=== PATIENT | female | born 1985 | race Caucasian/White ===

== ENCOUNTER → 2023-11-04 10:01 | Outpatient (REF) | payer OTHER, SELFPAY | LOC: WDC 10:01 | PROVIDERS: ATTENDING PHYSICIAN Family Medicine | DX: N63.24 Unspecified lump in the left breast, lower inner quadrant (principal) | CPT/HCPCS: 76642; 77062; 77066 ==

== ENCOUNTER → 2023-11-11 08:34 | Outpatient (REF) | payer OTHER, SELFPAY ==
--- NOTE | 2023-11-11 14:01 | OID.BR.INTR ---
[facility] Breast Navigator - Initial
- -
Date of Contact: 11/11/23
Met with patient. Patient given information on navigator services and support services available at [facility]. Will follow up as needed per protocol.
== END ==
LOC: WDC 08:34
PROVIDERS: ATTENDING PHYSICIAN Family Medicine
DX: N63.32 Unspecified lump in axillary tail of the left breast (principal)
CPT/HCPCS: 88305; 19083; 19084; 77065; 88341; 88342; 88360; A4648

== ENCOUNTER → 2023-11-20 07:00 | Outpatient (REF) | payer OTHER, SELFPAY | LOC: WDC 07:00 | PROVIDERS: ATTENDING PHYSICIAN Surgery | DX: N63.24 Unspecified lump in the left breast, lower inner quadrant (principal) | CPT/HCPCS: A4648 ==

== ENCOUNTER → 2023-11-23 16:21 | Outpatient (REF) | payer OTHER, SELFPAY | LOC: MRI 3T 16:21 | PROVIDERS: ATTENDING PHYSICIAN Surgery; FAMILY PHYSICIAN Family Medicine | DX: C50.412 Malignant neoplasm of upper-outer quadrant of left female breast (principal); Z17.0 Estrogen receptor positive status [ER+]; Z80.3 Family history of malignant neoplasm of breast | CPT/HCPCS: 77049; A9585 ==

== ENCOUNTER → 2023-12-09 14:59 | Outpatient (REF) | payer OTHER, SELFPAY | LOC: RCS 14:59 | PROVIDERS: ATTENDING PHYSICIAN Internal Medicine Hematology & Oncology; FAMILY PHYSICIAN Family Medicine | DX: C50.312 Malignant neoplasm of lower-inner quadrant of left female breast (principal) | CPT/HCPCS: 93306; 93356 ==

== ENCOUNTER → 2023-12-14 15:47 | Outpatient (REF) | payer OTHER, SELFPAY ==
[2023-12-14 12:29] LABS: % Basophils 0.6 % (0-2); % Eosinophils 2.4 % (0-6); % Immature Granulocytes 0.3 % (0-0.5); % Lymphocytes 25.8 % (20.5-51.1); % Monocytes 6.8 % (1.7-9.3); % Neutrophils 64.1 % (42.2-75.2); Absolute Eosinophils 0.2 10^3/uL (0-0.7); Absolute Lymphocytes 1.6 10^3/uL (1.2-3.4); Absolute Monocytes 0.4 10^3/uL (0.1-0.6); Absolute Neutrophils 3.9 10^3/uL (1.4-6.5); Hematocrit 40.5 % (37.0-47.0); Mean Corp Hgb Conc. 34.6 g/dL (33.0-37.0); Mean Corpuscular Hgb 31.2 pg (27.0-31.0); Mean Corpuscular Volume 90.2 fL (81.0-99.0); Nucleated Red Blood Cells % 0 %; Platelet Count 294 10^3/uL (130-400); Red Blood Cell Count 4.49 10^6/uL (4.20-5.40); Red Cell Dist. Width 11.8 % (11.5-14.5); White Blood Cell Count 6.2 10^3/uL (4.8-10.8)
[2023-12-14 12:42] LABS: ALT (SGPT) 19 U/L (0-35); AST (SGOT) 25 U/L (14-36); Albumin 4.3 g/dl (3.5-5.0); Alkaline Phosphatase 114 U/L (38-126); Blood Urea Nitrogen 8 mg/dl (7-17); Calcium 9.3 mg/dl (8.4-10.2); Carbon Dioxide 26 mmol/L (22-30); Chloride 103 mmol/L (98-107); Glucose 103 mg/dl (70-99); Sodium 135 mmol/L (135-145); Total Bilirubin 0.6 mg/dl (0.2-1.3); Total Protein 7.7 g/dl (6.3-8.2); eGFR > 60.00
== END ==
LOC: OIDL 15:47
PROVIDERS: ATTENDING PHYSICIAN Internal Medicine Hematology & Oncology
DX: C50.312 Malignant neoplasm of lower-inner quadrant of left female breast (principal)
CPT/HCPCS: 80053; 85025

== ENCOUNTER 2023-12-15 06:11 | Day surgery (SDC) | payer OTHER, SELFPAY ==
[2023-12-08 08:45] LABS: Hematocrit 36.2 % (37.0-47.0); Hemoglobin 12.7 g/dL (12.0-16.0); Mean Corp Hgb Conc. 35.1 g/dL (33.0-37.0); Mean Corpuscular Hgb 31.4 pg (27.0-31.0); Mean Corpuscular Volume 89.6 fL (81.0-99.0); Mean Platelet Volume 8.9 fL (7.4-10.4); Platelet Count 271 10^3/uL (130-400); Red Blood Cell Count 4.04 10^6/uL (4.20-5.40)
[2023-12-08 09:15] LABS: ALT (SGPT) 16 U/L (0-35); AST (SGOT) 20 U/L (14-36); Alkaline Phosphatase 80 U/L (38-126); Blood Urea Nitrogen 14 mg/dl (7-17); Calcium 8.8 mg/dl (8.4-10.2); Carbon Dioxide 27 mmol/L (22-30); Chloride 103 mmol/L (98-107); Glucose 92 mg/dl (70-99); Potassium 4.2 mmol/L (3.5-5.1); Sodium 137 mmol/L (135-145); Total Protein 7.3 g/dl (6.3-8.2); eGFR > 60.00
[2023-12-08 09:23] LABS: Prealbumin (Transthyretin) 22.7 mg/dl (17.6-36.0)
[2023-12-08 09:34] LABS: Vitamin D, 25-OH*** 22.5 ng/mL (30-80)
[2023-12-08 12:29] VITALS: BMI 29.0
[2023-12-15] VITALS (8 sets, daily range): BP systolic 99–118; BP diastolic 65–85; BMI 26.8
[2023-12-15] MEDS: NSS 1000 IV (06:42)
--- NOTE | 2023-12-15 07:38 | PTCARENOTE ---
IVF hung wide open after IV inserted. When patient was taken to the OR her IVF 1000 ml NSS not completely infused yet. Told the OR team CRICKET COACH that Normosol still needs to be hung after NSS.
== END 2023-12-15 10:09 | disposition home or self-care (01) ==
LOC: SDS 06:11
PROVIDERS: ATTENDING PHYSICIAN Surgery; FAMILY PHYSICIAN Family Medicine
DX: C50.912 Malignant neoplasm of unspecified site of left female breast (principal); Z17.0 Estrogen receptor positive status [ER+]
CPT/HCPCS: 36561; 36415; 71045; 76000; 80053; 82306; 84134; 85027; C1788

== ENCOUNTER → 2024-01-27 15:21 | Outpatient (REF) | payer OTHER, SELFPAY ==
[2024-01-27 10:26] LABS: ALT (SGPT) 22 U/L (0-35); AST (SGOT) 24 U/L (14-36); Albumin 3.9 g/dl (3.5-5.0); Alkaline Phosphatase 98 U/L (38-126); Blood Urea Nitrogen 12 mg/dl (7-17); Calcium 8.8 mg/dl (8.4-10.2); Carbon Dioxide 28 mmol/L (22-30); Chloride 101 mmol/L (98-107); Glucose 107 mg/dl (70-99); Potassium 3.8 mmol/L (3.5-5.1); Sodium 135 mmol/L (135-145); Total Bilirubin 0.5 mg/dl (0.2-1.3); Total Protein 7.1 g/dl (6.3-8.2); eGFR > 60.00
== END ==
LOC: OIDL 15:21
PROVIDERS: ATTENDING PHYSICIAN Internal Medicine Hematology & Oncology
DX: C50.312 Malignant neoplasm of lower-inner quadrant of left female breast (principal)
CPT/HCPCS: 80053

== ENCOUNTER → 2024-02-26 14:13 | Outpatient (REF) | payer OTHER, SELFPAY | LOC: RCS 14:13 | PROVIDERS: ATTENDING PHYSICIAN Internal Medicine Cardiovascular Disease; FAMILY PHYSICIAN Family Medicine | DX: Z85.3 Personal history of malignant neoplasm of breast (principal); E78.1 Pure hyperglyceridemia; R94.31 Abnormal electrocardiogram [ECG] [EKG] | CPT/HCPCS: 93308; 93321; 93325 ==

== ENCOUNTER → 2024-04-12 11:43 | Outpatient (REF) | payer OTHER, SELFPAY ==
[2024-04-12 11:49] LABS: % Basophils 0.3 % (0-2); % Immature Granulocytes 8.7 % (0-0.5); Absolute Immature Granulocytes 0.3 10^3/uL (0-0.05); Absolute Lymphocytes 0.8 10^3/uL (1.2-3.4); Absolute Monocytes 0.1 10^3/uL (0.1-0.6); Absolute Neutrophils 2.3 10^3/uL (1.4-6.5); Hematocrit 29.2 % (37.0-47.0); Hemoglobin 10.4 g/dL (12.0-16.0); Mean Corp Hgb Conc. 35.6 g/dL (33.0-37.0); Mean Corpuscular Hgb 38.5 pg (27.0-31.0); Mean Corpuscular Volume 108.1 fL (81.0-99.0); Mean Platelet Volume 8.8 fL (7.4-10.4); Platelet Count 157 10^3/uL (130-400); Red Cell Dist. Width 14.4 % (11.5-14.5); White Blood Cell Count 3.5 10^3/uL (4.8-10.8)
[2024-04-12 13:07] LABS: ALT (SGPT) 22 U/L (0-35); AST (SGOT) 29 U/L (14-36); Albumin 4.3 g/dl (3.5-5.0); Alkaline Phosphatase 77 U/L (38-126); Blood Urea Nitrogen 20 mg/dl (7-17); Calcium 8.9 mg/dl (8.4-10.2); Carbon Dioxide 27 mmol/L (22-30); Chloride 95 mmol/L (98-107); Glucose 106 mg/dl (70-99); Potassium 3.6 mmol/L (3.5-5.1); Sodium 133 mmol/L (135-145); Total Bilirubin 1.4 mg/dl (0.2-1.3); Total Protein 7.1 g/dl (6.3-8.2); eGFR > 60.00
== END ==
LOC: OIDL 11:43
PROVIDERS: ATTENDING PHYSICIAN Internal Medicine Hematology & Oncology
DX: C50.312 Malignant neoplasm of lower-inner quadrant of left female breast (principal)
CPT/HCPCS: 80053; 85025

== ENCOUNTER → 2024-05-24 07:23 | Outpatient (REF) | payer OTHER, SELFPAY | LOC: RCS 07:23 | PROVIDERS: ATTENDING PHYSICIAN Physician Assistant; FAMILY PHYSICIAN Family Medicine; OTHER PHYSICIAN Internal Medicine Cardiovascular Disease; REFERRING PHYSICIAN Internal Medicine Hematology & Oncology | DX: R94.31 Abnormal electrocardiogram [ECG] [EKG] (principal); R06.02 Shortness of breath | CPT/HCPCS: 93306; 93356 ==

== ENCOUNTER → 2024-05-30 08:50 | Outpatient (REF) | payer OTHER, SELFPAY | LOC: WDC 08:50 | PROVIDERS: ATTENDING PHYSICIAN Surgery | DX: C50.412 Malignant neoplasm of upper-outer quadrant of left female breast (principal) | CPT/HCPCS: 38792; 76942; A9541 ==

== ENCOUNTER 2024-05-31 06:42 | Inpatient (IN) | payer OTHER, SELFPAY ==
[2024-05-19 09:12] VITALS: BMI 27.3
[2024-05-19 11:19] LABS: ALT (SGPT) 16 U/L (0-35); AST (SGOT) 25 U/L (14-36); Albumin 4.1 g/dl (3.5-5.0); Alkaline Phosphatase 70 U/L (38-126); Blood Urea Nitrogen 14 mg/dl (7-17); Calcium 9.5 mg/dl (8.4-10.2); Carbon Dioxide 26 mmol/L (22-30); Chloride 104 mmol/L (98-107); Estimated Creatinine Clearance 99 ml/min; Glucose 91 mg/dl (70-99); Potassium 3.6 mmol/L (3.5-5.1); Sodium 136 mmol/L (135-145); Total Bilirubin 0.7 mg/dl (0.2-1.3); Total Protein 6.9 g/dl (6.3-8.2); eGFR > 60.00
[2024-05-19 11:27] LABS: Prealbumin (Transthyretin) 22.2 mg/dl (17.6-36.0)
[2024-05-19 11:39] LABS: Vitamin D, 25-OH*** 39.7 ng/mL (30-80)
[2024-05-19 11:47] LABS: Hematocrit 31.7 % (37.0-47.0); Hemoglobin 10.8 g/dL (12.0-16.0); Mean Corp Hgb Conc. 34.1 g/dL (33.0-37.0); Mean Corpuscular Hgb 37.5 pg (27.0-31.0); Mean Corpuscular Volume 110.1 fL (81.0-99.0); Mean Platelet Volume 8.5 fL (7.4-10.4); Platelet Count 216 10^3/uL (130-400); Red Blood Cell Count 2.88 10^6/uL (4.20-5.40); Red Cell Dist. Width 12.6 % (11.5-14.5); White Blood Cell Count 4.5 10^3/uL (4.8-10.8)
--- NOTE | 2024-05-24 13:11 | PTCARENOTE ---
Patients 05/19 ECG Abnomral- reviewed by Dr. German- no additional interventions required
[2024-05-31] VITALS (12 sets, daily range): BP systolic 5–132; BP diastolic 60–92; BMI 27.3; BMI 26.5
[2024-05-31] MEDS: TYLENOL 1000 MG PO ×2 (07:29→17:10)
[2024-05-31] MEDS: NORMOSOL-R/PLASMALYTE-A 1000 IV (07:30)
--- NOTE | 2024-05-31 08:29 | W.SUR.PREOP ---
Pre-Operative Surgical Note
-
I have examined this patient prior to the performance of the scheduled procedure.
The patient's condition is unchanged from the time of the current History and
Physical and the patient is able to undergo the scheduled procedure.
--- NOTE | 2024-05-31 12:26 | W.IMMPOSTOP ---
Surgical Immed Post Op Note
-
Primary Surgeon: Kodi
Assisting Surgeon: None
Pre-op Diagnosis: Left breast ca S/P neoadjuvant chemotherapy
Post-op Diagnosis: Same
Procedure Performed: Bilateral skin-sparing mastectomies, left sentinel lymph node mapping and biopsy
Anesthesia Type: GET
Specimen / Cultures: Bilateral breasts, left sentinel nodes
Estimated Blood Loss: 20cc
Complications: None
Operative Findings: None
[place] Node Bx Breast Cancer
[place] Node Bx Breast Cancer
Operation performed with curative intent: Yes
Tracer(s) to ID Sentinal Nodes in the Neoadjuvant Setting: Dye and Radioactive Tracer
All nodes at end of dye-filled Lymphatic Channel removed: Yes
All Significantly Radioactive Nodes were removed: Yes
All Palpably Suspicious Nodes were Removed: Yes
Bx Proven Pos Nodes Marked Prior to Chemo ID'd & Removed: Yes
[2024-05-31] MEDS: DILAUDID 0.25 MG IV (13:26)
--- NOTE | 2024-05-31 15:05 | PTCARENOTE ---
Pt arrived to 2S in bed. Full assessment completed. B/L breast incisions C/D/I, dressings and surgical bra maintained. Soft around the sites, no hematoma noted, + cap refill. MASHA drain sites C/D/I. Bed locked and in the lowest position, safety
maintained. Oriented to room and call scott.
[2024-05-31] MEDS: NEURONTIN 100 MG PO ×2 (17:09→21:23)
[2024-05-31] MEDS: COLACE 100 MG PO (19:42)
[2024-05-31] MEDS: ANCEF 5 IV (19:42)
--- NOTE | 2024-05-31 20:09 | W.IMMPOSTOP ---
Surgical Immed Post Op Note
-
Primary Surgeon: CYDNEY Whatley MD
Assisting Surgeon:
Pre-op Diagnosis: breast cancer
Post-op Diagnosis: same
Procedure Performed: bilateral immediate breast reconstruction with tissue expanders
Anesthesia Type: General
Specimen / Cultures: Per Dr. Mariee
Estimated Blood Loss: 30 cc
Complications: none
Operative Findings: as expected
--- NOTE | 2024-05-31 20:09 | OR.RPT ---
Operative Report
Operative Report
Date of surgery: 05/31/2024
Surgeon: CYDNEY Whatley MD
Preoperative diagnosis: Breast cancer
Postoperative diagnosis: Same
Procedure:
1. Bilateral immediate breast reconstruction with prepectoral tissue expanders
2. Total anterior coverage technique for ADM wrap
Complications: None
Anesthesia: General
EBL:30 cc
Facility Service Associate size: 12 cm
Indications for procedure: Patient was referred to me by Dr. Mariee with a recent diagnosis of breast cancer. She was planned to undergo bilateral mastectomy. We discussed her options for breast reconstruction at length including implant based
and autologous options. The patient opted for immediate reconstruction with tissue expanders. She understands that the final reconstruction will be staged. We also discussed the use of ADM and spy angiography. Risks include reconstructive
failure, capsular contracture, infection, delayed wound healing, mastectomy skin flap necrosis, hematoma, seroma and need for repeat procedure. Patient understood these risks and desired to proceed. Consents were signed accordingly.
Procedure in detail: Patient was identified the preoperative area and the surgical site was confirmed to be the bilateral breast. All questions were answered and consents were confirmed. Patient was then sat upright and normal anatomical landmarks
were marked including midline and inframammary fold. Patient was then taken back to the operating room placed supine on the table. She was prepped and draped in the usual sterile fashion using ChloraPrep solution. A Tim catheter was placed. A
timeout for patient safety was performed was confirmed that bilateral SCDs were in place and preoperative antibiotics administered. The procedure began with Dr. Mariee first performing the mastectomy. Her op report will be dictated separately.
When I entered the procedure, the first sided mastectomy had been completed. As such I inspected the wound bed of the chest wall and ensured meticulous hemostasis. The base width was measured and appropriate tissue able bodied tankerman was selected. Two 6 x
16 sheets of Cortiva ADM were soaked in dilute Betadine solution and passed through the skin graft mesher on carrier of 1-1.5. This construct was then draped around the tissue able bodied tankerman in a total anterior coverage technique. The able bodied tankerman ADM
construct was then sutured to the chest wall with a series of 2-0 silk sutures. Pectoralis and intercostal blocks were performed with Marcaine. 2 drains were then placed in the preaxial area line with a long subcutaneous tunnel and sutured in
place with 2-0 Prolene sutures. The wound was irrigated with double antibiotic solution and dilute Betadine. The mastectomy incisions were then closed with a series of 3-0 Vicryl's in the deep subcutaneous tissues followed by 3-0 and 4-0
Monocryl's in the deep dermis and superficial skin.
Attention was then placed on the contralateral side after completion of the mastectomy. The exact same procedure was performed. An able bodied tankerman of the same size was opened and 2 sheets of ADM were soaked in Betadine, meshed, and draped around the
anterior surface of the able bodied tankerman in a total anterior coverage technique. The construct was then sutured to the chest wall using 2-0 silks. Pectoralis and intercostal blocks were performed. Meticulous hemostasis was ensured and the wound was
irrigated with combination of double antibiotic solution consisting of Ancef and gentamicin as well as dilute Betadine. The wound was closed in layers with 3-0 Vicryl followed by 3-0 Monocryl and 4-0 Monocryl superficial skin.
On table fill volume of 200 cc of saline.
The wounds were dressed accordingly and a supportive bra was placed. The patient was extubated taken to the PACU for further care. All counts were correct at the end the case was performed out complication.
[2024-05-31] MEDS: ULTRAM 50 MG PO (21:23)
[2024-06-01] MEDS: TYLENOL 1000 MG PO ×3 (00:29→11:19)
[2024-06-01] MEDS: ANCEF 5 IV ×2 (02:57→11:18)
[2024-06-01] MEDS: VALIUM 5 MG PO (03:02)
[2024-06-01 03:05] VITALS: BP 115/69
[2024-06-01 06:20] LABS: Hematocrit 27.9 % (37.0-47.0); Hemoglobin 9.6 g/dL (12.0-16.0)
[2024-06-01 07:33] LABS: Blood Urea Nitrogen 8 mg/dl (7-17); Calcium 8.7 mg/dl (8.4-10.2); Carbon Dioxide 26 mmol/L (22-30); Chloride 105 mmol/L (98-107); Estimated Creatinine Clearance 114 ml/min; Glucose 100 mg/dl (70-99); Potassium 3.5 mmol/L (3.5-5.1); Sodium 139 mmol/L (135-145); eGFR > 60.00
[2024-06-01 07:46] VITALS: BP 105/60
[2024-06-01] MEDS: COLACE 100 MG PO (09:05)
[2024-06-01] MEDS: NEURONTIN 100 MG PO (09:05)
--- NOTE | 2024-06-01 10:15 | W.PN.PLAS ---
Today's Communication
-
follow-up on Thursday in office
Progress Note
Subjective Data
Doing well this morning
Denies shortness of breath
Pain well-controlled
Subjective: Tolerating Regular Diet and Ambulatory
Objective Data
Vital Signs
Temp Pulse Resp BP Pulse Ox
97.8 F 85 16 105/60 100
06/01/24 07:46 06/01/24 07:46 06/01/24 07:46 06/01/24 07:46 06/01/24 07:46
Intake and Output
05/31/24 06/01/24 06/02/24
06:59 06:59 06:59
Intake Total 559 / 559
Output Total 882 / 882
Balance -323 / -323
Intake:
Oral fluids 409 / 409
IV fluids (Total) 150 / 150
norm 150 / 150
Output:
Drain Output (Total) 332 / 332
Left Chest Lucas-Silva C 52 / 52
Left Chest Lucas-Silva D 100 / 100
Right Chest A 50 / 50
Right Chest B 130 / 130
Urine, Voided 550 / 550
Other:
Number of approximated MODERATE 2
amounts of urine
Physical exam:
No acute distress
No increased work of breathing
Bilateral breast with expanders in place
No undrained fluid collections
Dressings in place clean dry and intact
Drains serosanguineous with appropriate output
Lab Results
06/01/24 06:00
06/01/24 06:00
Assessment / Plan
status post bilateral mastectomy and immediate reconstruction with tissue expanders
Ambulatory
Regular diet
Pain well-controlled on oral meds
Tim voided
Home today with visiting nurse
--- NOTE | 2024-06-01 10:17 | W.DCSUMMARY ---
Discharge Summary
Discharge Data
Date of Admission: 05/31/24
Date of Discharge: 06/01/24
-
Pending Results: No
Hospital Course
patient was admitted following bilateral mastectomy and immediate reconstruction with tissue expanders
She for routine postoperative course. On day of discharge her pain was well-controlled, she is tolerating regular diet, ambulatory, able to void.
Visiting nurse was arranged for drain management and wound check at home
Close follow-up was scheduled
Discharge Plan
-
Patient Disposition: Home (Routine Discharge)
Condition: Good
Referrals:
Bruce Robert DO [Family Provider] -
Prescriptions:
New
cefadroxil 500 mg capsule
500 mg PO BID Qty: 42 0RF
tramadol 50 mg Tablet
50 mg PO Q6HPRN PRN (Reason: pain) 7 Days Qty: 12 0RF
acetaminophen [Tylenol Extra Strength] 500 mg Tablet
1,000 mg PO Q6 30 Days Qty: 240 0RF
docusate sodium 100 mg Capsule
100 mg PO BID 14 Days Qty: 28 0RF
gabapentin 100 mg Capsule
100 mg PO TID 30 Days Qty: 90 2RF
diazepam 5 mg Tablet
5 mg PO TIDPRN PRN (Reason: Muscle Spasms) 14 Days Qty: 42 0RF
Continued
multivitamin Tablet
1 tab PO DAILY
cholecalciferol (vitamin D3) [Vitamin D3] 25 mcg (1,000 unit) Tablet
25 mcg PO DAILY
mecobalamin (vitamin B12) [B12 Active] 1,000 mcg Tablet,Chewable
1,000 mcg PO DAILY
Discharge Orders:
Discharge Patient (As Directed); Ordered 06/01/24
Ordered By: Fred Whatley
Discharge Date and Time
Print Language: FILIPINO
--- NOTE | 2024-06-01 11:02 | CM ---
Met with patient and her mother at the bedside; initial assessment and case management consult completed
Pharmacy verified: [facility] @ [address] [facility] [facility], [place], [place]
Patient lives in a multilevel home with mother, sister, and 2 year old son; 4 steps to enter; 13 steps between floors; bathroom in basement and on 2nd floor; her bathroom has walk-in shower stall
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
NO DME
NO history of SNF
Mother will transport home
Agreeable to Home Health services; VNA is preference; referral sent to [facility] liaison for VN via [place] [employer]
Plan: discharge to home when stable with home health VN services from [facility]
[2024-06-01 11:17] VITALS: BP 111/80
[2024-06-01] MEDS: ULTRAM 50 MG PO (11:19)
--- NOTE | 2024-06-01 13:11 | VNURNOTE ---
Home health liaison met with patient to discuss [facility] services, visit scheduling/frequency, homebound status and pet policy. Patient understands home visits will be 1-2 times a week to assess and teach medical management, drain teaching. Patient
aware a visiting nurse will contact her for start of care within 1-2 days after discharge from . [facility] Referral completed in care port
--- NOTE | 2024-06-01 13:37 | W.PN.UPDATE ---
Update Note
Progress Note Update
the patient is POD #1 S/P bilateral mastectomies and sentinel node mapping and biopsy with immediate reconstruction with bilateral tissue expanders performed by Dr. Whatley. The patient is doing well and her pain is well-controlled. Post op nutrition
and activity discussed. VNA in place. She will see Dr. Whatley in 2 days and myself in 2 weeks. Pathology report pending.
== END 2024-06-01 14:05 | disposition home health service (06) | DRG 581 ==
LOC: 2 SOUTH 06:42
PROVIDERS: ADMITTING PHYSICIAN Surgery Plastic and Reconstructive Surgery; ATTENDING PHYSICIAN Surgery; FAMILY PHYSICIAN Family Medicine
PROC: 0HUV07Z Supplement Bilateral Breast with Autologous Tissue Substitute, Open Approach (ICD-10-PCS; 2024-05-31)
PROC: 07B60ZX Excision of Left Axillary Lymphatic, Open Approach, Diagnostic (ICD-10-PCS; 2024-05-31)
PROC: 0HTV0ZZ Resection of Bilateral Breast, Open Approach (ICD-10-PCS; 2024-05-31)
PROC: 0HHV0NZ Insertion of Tissue Expander into Bilateral Breast, Open Approach (ICD-10-PCS; 2024-05-31)
DX: C50.412 Malignant neoplasm of upper-outer quadrant of left female breast (principal)
CPT/HCPCS: 88307; 88332; 36415; 80048; 80053; 82306; 84134; 85014; 85018; 85027; 88331; 88333; 88342; 93005; A4648; C1729; C1789; Q4100

== ENCOUNTER 2024-07-07 15:13 | Day surgery (SDC) | payer OTHER, SELFPAY ==
[2024-07-07] VITALS (11 sets, daily range): BP systolic 30–130; BP diastolic 72–92
--- NOTE | 2024-07-07 09:18 | ED.GENMED ---
History of Present Illness
General
Chief Complaint: Wound Check/Suture Removal
Source: patient
Exam Limitations: none
Time Seen by Provider: 07/07/24 09:01
Nursing documentation reviewed up to this point in time: agreed with
History of Present Illness
History of Present Illness:
pt is a 39 y/o F with h/o breast CA
completed chemo
had double mastectomy may 2024
had expanders placed last week
had had some fluid accumuliation in both, more in the L than R
has been seen by dr. mendiola from plastics who is doing the reconstruction
he drained some fluid off 3 days ago
she has had trouble with the L side incision site not closing well. she completed abx
but in the past few days has had some yellowish tissue develop in the center of the incision
this mornign a scab came off and then then she started oozing serosanguanous fluid and 'can't get it to stop'
she has no pain
no fever/hcills
R breast is hleaing well
Past History
Past History
ED Past Medical History: Cancer (breast)
ED Past Surgical History: Gynecological (b/l mastectoy )
Review of Systems
Review of Systems
Allergies reviewed?: Yes
All Other Systems: Not applicable
Phy Exam
Physical Exam
Physical Exam:
GENERAL: Alert , in no apparent distress
CARDIAC: Regular rate and rhythm .
LUNGS: Clear breath sounds bilaterally, no acute respiratory distress, no wheezes/rales/rhonchi
breast: L central vertical incision superiorly with eschar tissue in the center, not fully closed with oozing from the inferior aspect of the top incision
the loewr
ABDOMEN: Soft, without focal tenderness, no r/g, no cvat, normal bowel sounds
NEUROLOGICAL: Alert and oriented, no focal neuro deficits
SKIN: Warm and dry, skin intact.
MUSCULOSKELETAL: No edema, well perfused. neg vero's sign
PSYCH: Normal and appropriate interaction.
Course
Orders/Labs/Results
Orders:
Orders
07/07/24 09:37
Complete Blood Count/With Diff Urgent
Comprehensive Metabolic Panel Urgent
PTT Urgent
Prothrombin Time Urgent
Vital Signs
Initial and Last Documented VS:
Initial Vital Signs
Temp Pulse Resp BP Pulse Ox
98.5 F 96 16 130/92 98
07/07/24 08:47 07/07/24 08:47 07/07/24 08:47 07/07/24 08:47 07/07/24 08:47
Last Documented Vital Signs
Temp Pulse Resp BP Pulse Ox
98.5 F 96 16 130/92 98
07/07/24 08:47 07/07/24 08:47 07/07/24 08:47 07/07/24 08:47 07/07/24 08:47
MDM/Problems Addressed
Differential Diagnosis Includes:
wound dehiscence, wound infection
MDM/Problems Addressed:
39 y/o F s/p breast reconstruction surgery (expanders) after double mastectomy here with wound dehiscence and oozing from the L breast incision
concner for seroma/reaccumulation of fluid and possible infeciton/poor healgin
i spoke with pt's plastic surgeon dr. mendiola who came to the Er to evaluate her and discussed options
pt will plan for OR incision wash out and replacement of flame hardening machine operator and maybe another drain today
NPO
admit to OR
*Critical Care Note
Total Time (30-74mins, 75-104mins- exclusive of procedures): Not Applicable
ED Attending Note
-
Portions of this chart may have been created with voice recognition software.� Occasional wrong word or��sound alike� substitutions may have occurred due to the inherent limitations of voice recognition software.
Discharge Plan
Departure
Patient Disposition: Admit
Date of Disposition: 07/07/24
Time of Disposition: 09:32
Admit to: OR
Admit to doctor: marlena
Presentation/result/management discussed w/ accepting /: marlena
Patient with high blood pressure during this ER visit?: No
Condition: Fair
Covid-19: Not Applicable
Discharge Problem:
Dehiscence of wound
Prescriptions:
No Action
multivitamin Tablet
1 tab PO DAILY
cholecalciferol (vitamin D3) [Vitamin D3] 25 mcg (1,000 unit) Tablet
25 mcg PO DAILY
mecobalamin (vitamin B12) [B12 Active] 1,000 mcg Tablet,Chewable
1,000 mcg PO DAILY
cefadroxil 500 mg capsule
500 mg PO BID Qty: 42 0RF
tramadol 50 mg Tablet
50 mg PO Q6HPRN PRN (Reason: pain) 7 Days Qty: 12 0RF
acetaminophen [Tylenol Extra Strength] 500 mg Tablet
1,000 mg PO Q6 30 Days Qty: 240 0RF
docusate sodium 100 mg Capsule
100 mg PO BID 14 Days Qty: 28 0RF
gabapentin 100 mg Capsule
100 mg PO TID 30 Days Qty: 90 2RF
diazepam 5 mg Tablet
5 mg PO TIDPRN PRN (Reason: Muscle Spasms) 14 Days Qty: 42 0RF
Referrals:
Bruce Robert DO [Family Provider] -
Interventions
Interventions:
*Risk Screen - Suicide Last Done: 07/07/24 08:47
*General Assessment Last Done: 07/07/24 09:25
*Neglect/Abuse Screening Last Done: 07/07/24 08:47
*ED COVID-19 Vaccine History Last Done: 07/07/24 09:25
ED-Skin Assessment Last Done: 07/07/24 09:25
Discharge Date and Time
Print Language: WELSH
[2024-07-07 10:26] LABS: % Eosinophils 10.7 % (0-6); % Immature Granulocytes 0.2 % (0-0.5); % Lymphocytes 38.2 % (20.5-51.1); % Monocytes 7.4 % (1.7-9.3); % Neutrophils 42.5 % (42.2-75.2); Absolute Basophils 0.1 10^3/uL (0-0.2); Absolute Eosinophils 0.5 10^3/uL (0-0.7); Absolute Lymphocytes 1.9 10^3/uL (1.2-3.4); Absolute Monocytes 0.4 10^3/uL (0.1-0.6); Absolute Neutrophils 2.1 10^3/uL (1.4-6.5); Hemoglobin 10.5 g/dL (12.0-16.0); Mean Corpuscular Hgb 32.7 pg (27.0-31.0); Mean Corpuscular Volume 93.5 fL (81.0-99.0); Mean Platelet Volume 8.1 fL (7.4-10.4); Nucleated Red Blood Cells % 0 %; Platelet Count 220 10^3/uL (130-400); Red Blood Cell Count 3.21 10^6/uL (4.20-5.40); Red Cell Dist. Width 11.5 % (11.5-14.5)
[2024-07-07 10:38] LABS: INR 1.04; PT 13.6 Sec (11.4-14.6)
[2024-07-07 10:39] LABS: APTT 37.1 Sec (23.4-35.0)
[2024-07-07 10:47] LABS: ALT (SGPT) 18 U/L (0-35); AST (SGOT) 23 U/L (14-36); Alkaline Phosphatase 80 U/L (38-126); Blood Urea Nitrogen 13 mg/dl (7-17); Calcium 9.3 mg/dl (8.4-10.2); Carbon Dioxide 28 mmol/L (22-30); Chloride 104 mmol/L (98-107); Glucose 101 mg/dl (70-99); Potassium 3.8 mmol/L (3.5-5.1); Sodium 140 mmol/L (135-145); Total Bilirubin 0.5 mg/dl (0.2-1.3); eGFR > 60.00
--- NOTE | 2024-07-07 16:52 | W.IMMPOSTOP ---
Surgical Immed Post Op Note
-
Primary Surgeon: CYDNEY Whatley MD
Assisting Surgeon:
Pre-op Diagnosis: left breast seroma
Post-op Diagnosis: same
Procedure Performed: debridement 7 x 3 cm, removal of tissue student assistance counselor, capsulectomy, reinsertion of tissue student assistance counselor
Anesthesia Type: General
Specimen / Cultures: Capsule for culture, fluid for culture
Estimated Blood Loss: 30 cc
Complications: none
Operative Findings: unincorporated ADM
--- NOTE | 2024-07-07 16:54 | OR.RPT ---
Operative Report
Operative Report
date of surgery: 07/07/2024
Surgeon: CYDNEY Whatley MD
Preoperative diagnosis:
1. 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
2. History of breast cancer, left
3. Left breast seroma
Postoperative diagnosis: Same
Procedure:
1. Excisional debridement skin and subcutaneous tissues, 7 x 3 cm
2. Removal of left breast tissue holter scanning technician
3. Capsulectomy, left breast
4. Insertion of left breast tissue holter scanning technician
5. Superficial excisional debridement 1 x 2 cm, 2 x 3 cm, with delayed primary closure 5 cm in total, right breast
anesthesia: General
Complications: None
Specimens: Fluid and capsule for culture
EBL: 30 cc
Indications for procedure: Patient is a 39-year-old female with a recent diagnosis of left breast cancer. She underwent neoadjuvant chemotherapy followed by bilateral skin sparing mastectomy and immediate reconstruction with tissue expanders. She
followed a routine postoperative course for 3 weeks. Drains came out without issue. She tolerated expansion in the office. Unfortunately, she presented over 1 month out with delayed seromas of the bilateral breast. These were drained in the
office without complication. She developed recurrent fluid production through a left breast eschar. She presented to the ED for evaluation. The decision was made to go to the OR for removal of the tissue holter scanning technician, removal of any unincorporated
ADM, replacement of the drain and holter scanning technician. This would be done to prevent infectious sequela. Risks were reviewed at length and she understood. Right breast debridement superficial sutures support for wound healing would be performed as
indicated. Consents were confirmed
procedure in detail: Patient was identified preoperatively and the surgical site Was confirmed to be the left and right breast. patient was brought back to the operating room placed supine on table. Anesthesia was induced and an LMA was placed.
Patient was then prepped and draped using ChloraPrep solution in the usual sterile fashion. Timeout for patient safety was performed And was confirmed that she received preoperative antibiotics and SCDs were in place. Procedure began with the
injection 1% lidocaine with epinephrine in the left breast incisional markings. A 15 blade was then used to casi a vertical ellipse around the prior surgical incision with delayed wound healing. This was an area of 7 x 3 cm. The implant capsule
was then entered and the holter scanning technician was removed. Serosanguineous fluid was present without any purulence. Cultures were taken and sent. Notable amount of unincorporated ADM was present and as such a near total capsulectomy was performed.
Meticulous hemostasis was ensured and the wound bed was then irrigated with 3 L of normal saline using the Pulse EVAC. vancomycin powder was then distributed over the exposed areas and a 12 cm holter scanning technician was sutured onto the chest wall using 2 oh
silks. A 15 [place] Champ drain was placed and tunneled subcutaneously in the periaxillary line. This was sutured in place with 2-0 Prolene. The vertical wound was then closed with 3-0 Monocryl followed by 4-0 Monocryl. Prior to completion of
closure Betadine was used to instill into the wound bed while the drain was clamped. Attention was then drawn to the right side where superficial eschar was removal was performed at the level of the dermis, with punctate bleeding. This was
performed at the superior and inferior aspects of the incision only. A series of 2-0 Prolene's were placed to support the wound healing process and prevent further breakdown. The wounds were dressed accordingly bacitracin dry gauze and Tegaderm.
Patient tolerated the procedure well, was performed out complication. All counts were correct at the end the case.
--- NOTE | 2024-07-07 18:10 | VATNOTE ---
right port deaccessed per protocol; brisk blood return noted prior to.
== END 2024-07-07 18:28 | disposition home or self-care (01) ==
LOC: PACU 15:13
PROVIDERS: Physician Assistant; ATTENDING PHYSICIAN Surgery Plastic and Reconstructive Surgery; EMERGENCY PHYSICIAN Emergency Medicine; FAMILY PHYSICIAN Family Medicine
DX: M96.843 Postprocedural seroma of a musculoskeletal structure following other procedure (principal); Z97.8 Presence of other specified devices; Z85.3 Personal history of malignant neoplasm of breast; Z90.13 Acquired absence of bilateral breasts and nipples
CPT/HCPCS: 11970; 80053; 85025; 85610; 85730; 87070; 87075; 87147; 87176; 87186; 87205; 99285; C1729; C1789; L8000

== ENCOUNTER → 2024-08-26 09:20 | Outpatient (REF) | payer OTHER, SELFPAY | LOC: RCS 09:20 | PROVIDERS: ATTENDING PHYSICIAN Internal Medicine Cardiovascular Disease; FAMILY PHYSICIAN Family Medicine | DX: Z85.3 Personal history of malignant neoplasm of breast (principal); R00.0 Tachycardia, unspecified; R94.31 Abnormal electrocardiogram [ECG] [EKG] | CPT/HCPCS: 93306; 93356 ==

== ENCOUNTER → 2024-11-03 13:10 | Outpatient (REF) | payer OTHER, SELFPAY | LOC: HWRAD 13:10 | PROVIDERS: ATTENDING PHYSICIAN Internal Medicine Hematology & Oncology; FAMILY PHYSICIAN Family Medicine | DX: C50.312 Malignant neoplasm of lower-inner quadrant of left female breast (principal); E78.2 Mixed hyperlipidemia | CPT/HCPCS: 77080 ==

== ENCOUNTER → 2024-11-28 14:44 | Outpatient (REF) | payer OTHER, SELFPAY ==
[2024-11-28 17:09] LABS: ALT (SGPT) 16 U/L (0-35); AST (SGOT) 19 U/L (14-36); Albumin 4.2 g/dl (3.5-5.0); Alkaline Phosphatase 94 U/L (38-126); Blood Urea Nitrogen 11 mg/dl (7-17); Calcium 9.3 mg/dl (8.4-10.2); Carbon Dioxide 24 mmol/L (22-30); Chloride 104 mmol/L (98-107); Glucose 91 mg/dl (70-99); Potassium 3.2 mmol/L (3.5-5.1); Sodium 137 mmol/L (135-145); Total Bilirubin 0.6 mg/dl (0.2-1.3); Total Protein 7.1 g/dl (6.3-8.2); eGFR > 60.00
[2024-11-28 17:37] LABS: % Basophils 1.4 % (0-2); % Eosinophils 2.3 % (0-6); % Immature Granulocytes 0.5 % (0-0.5); % Lymphocytes 44.3 % (20.5-51.1); % Monocytes 6.8 % (1.7-9.3); % Neutrophils 44.7 % (42.2-75.2); Absolute Eosinophils 0.1 10^3/uL (0-0.7); Absolute Monocytes 0.2 10^3/uL (0.1-0.6); Hematocrit 26.3 % (37.0-47.0); Hemoglobin 9.1 g/dL (12.0-16.0); Mean Corp Hgb Conc. 34.6 g/dL (33.0-37.0); Mean Corpuscular Hgb 33.3 pg (27.0-31.0); Mean Corpuscular Volume 96.3 fL (81.0-99.0); Mean Platelet Volume 8.8 fL (7.4-10.4); Nucleated Red Blood Cells % 0 %; Platelet Count 121 10^3/uL (130-400); Red Blood Cell Count 2.73 10^6/uL (4.20-5.40); Red Cell Dist. Width 12.6 % (11.5-14.5); White Blood Cell Count 2.2 10^3/uL (4.8-10.8)
== END ==
LOC: OIDL 14:44
PROVIDERS: ATTENDING PHYSICIAN Internal Medicine Hematology & Oncology
DX: C50.312 Malignant neoplasm of lower-inner quadrant of left female breast (principal); E87.6 Hypokalemia
CPT/HCPCS: 80053; 85025

== ENCOUNTER → 2025-01-11 07:31 | Outpatient (REF) | payer OTHER, SELFPAY | LOC: RAD 07:31 | PROVIDERS: ATTENDING PHYSICIAN Internal Medicine Hematology & Oncology; FAMILY PHYSICIAN Family Medicine | DX: C50.312 Malignant neoplasm of lower-inner quadrant of left female breast (principal); E87.6 Hypokalemia | CPT/HCPCS: 71260; 74177; 78306; A9503; Q9967 ==

== ENCOUNTER → 2025-05-10 14:54 | Outpatient (REF) | payer OTHER, SELFPAY | LOC: RAD 14:54 | PROVIDERS: ATTENDING PHYSICIAN Surgery Plastic and Reconstructive Surgery; FAMILY PHYSICIAN Family Medicine | DX: Z85.3 Personal history of malignant neoplasm of breast (principal) | CPT/HCPCS: 74174; Q9967 ==

== ENCOUNTER → 2025-05-17 12:58 | Outpatient (REF) | payer OTHER, SELFPAY | LOC: RCS 12:58 | PROVIDERS: ATTENDING PHYSICIAN Internal Medicine Cardiovascular Disease; FAMILY PHYSICIAN Family Medicine | DX: Z85.3 Personal history of malignant neoplasm of breast (principal); Z29.89 Encounter for other specified prophylactic measures; R00.0 Tachycardia, unspecified | CPT/HCPCS: 93306; 93356 ==

== ENCOUNTER 2025-05-24 05:54 | Inpatient (IN) | payer OTHER, SELFPAY ==
[2025-05-10 08:49] LABS: Hematocrit 31.8 % (37.0-47.0); Hemoglobin 11.2 g/dL (12.0-16.0); Mean Corp Hgb Conc. 35.2 g/dL (33.0-37.0); Mean Corpuscular Volume 101.0 fL (81.0-99.0); Nucleated Red Blood Cells % 0 %; Platelet Count 182 10^3/uL (130-400); Red Cell Dist. Width 11.9 % (11.5-14.5)
[2025-05-10 09:44] LABS: ALT (SGPT) 44 U/L (0-35); AST (SGOT) 24 U/L (14-36); Albumin 4.2 g/dl (3.5-5.0); Alkaline Phosphatase 87 U/L (38-126); Blood Urea Nitrogen 13 mg/dl (7-17); Calcium 9.9 mg/dl (8.4-10.2); Carbon Dioxide 30 mmol/L (22-30); Chloride 108 mmol/L (98-107); Glucose 94 mg/dl (70-99); Potassium 4.5 mmol/L (3.5-5.1); Sodium 141 mmol/L (135-145); Total Protein 7.3 g/dl (6.3-8.2); eGFR > 60.00
[2025-05-10 13:59] VITALS: BMI 27.1
[2025-05-24] VITALS (21 sets, daily range): BP systolic 83–104; BP diastolic 61–74; BMI 27.1; BMI 26.9
[2025-05-24] MEDS: EMEND 40 MG PO (07:09)
[2025-05-24] MEDS: LOVENOX 40 MG SC (07:09)
--- NOTE | 2025-05-24 16:51 | OR.RPT ---
Operative Report
Operative Report
Date of Service: 05/24/25
Surgeon: Az Hernadez MD
Co-Surgeon: Owen Whatley MD
Preoperative diagnosis:
1. Personal history of breast cancer
2. 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
3. Prior left breast radiation
Postoperative diagnosis: Same
Procedure:
1. Bilateral removal of tissue expanders without replacement
2. Bilateral capsulotomies and partial capsulectomies
3. Bilateral delayed KIRK flap breast reconstruction
4. Bilateral local tissue rearrangements of the breasts measuring 4x4cm on each side
5. Right internal mammary lymph node biopsy
6. Application of MELVIN disposable negative pressure incisional wound VAC.
Anesthesia: General
EBL: 150 cc
Specimens:
1. Right internal mammary lymph node
2. Right mastectomy skin and soft tissue
3. Left mastectomy skin and soft tissue
Drains: 4 15 Iranian Champ drains
Complications: None
Indications: This is a 40-year-old female who has a history of breast cancer and bilateral mastectomies with clinical material handler based breast reconstruction. She has a history of left breast radiation and had decided to move forward with autologous
reconstruction. She was referred to me by her primary plastic surgeon, Dr. Whatley. I discussed the various options available to her. She was interested in pursuing autologous reconstruction with tissue from her abdomen and she had acceptable donor
site. Risks of the procedure were discussed including flap failure, return to OR for arterial or venous thrombosis, wound healing issues, donor site morbidity to the abdomen and VTE.� We reviewed the nature of the procedure and the risk benefits and
alternatives at length.� All her questions were answered.� Consent was signed prior to surgery.
Operative findings:
The patient was brought to the operating room and placed supine on the operating room table. General anesthesia was induced with endotracheal tube.� A Tim catheter was placed.� Patient was prepped and draped in the standard fashion using
chlorhexidine prep.� A timeout was performed.
Dr. Whatley and I started the dissection of the flaps in the abdomen together until we were able to confirm the flap dimensions and start the train clerk dissection. Once Dr. Whatley starting performing the train clerk dissection on the right
hemiabdomen, I went up to the chest to perform the internal mammary vessel dissection.� On both sides, the clinical material handler was removed and extensive capsulotomies were performed to radially expand the pocket. The third rib was resected bilaterally. The
internal mammary arteries and veins were identified and carefully circumferentially dissected. Internal mammary lymph nodes were encountered on the right and these were sent off for pathologic evaluation.
As I was working on the mammary vessels, Dr. Whatley was working on the abdomen. This involved dissection of the abdominal wall and identification of perforating vessels into the abdominal flaps bilaterally.� On the patient's right side a 4
train clerk KIRK flap was dissected.� This involved minimal muscle to minimize the morbidity to the abdominal wall.� The flap was dissected down to the source vessels where the inferior epigastrics were coming off of the external iliac. The abdominal
vessel dissection was particularly challenging due to the multiple prior C-sections the patient had. Her mammary vessel dissection was also difficult due to her prior radiation. I did the contralateral abdominal dissection while Dr. Whatley was doing
the microsurgery on the left chest. On the contralateral side another 4 train clerk KIRK flap was also dissected.� This similarly involved a tedious dissection where the inferior epigastrics were traced down to their source vessel in a muscle sparing
approach.
The right flap was harvested from the abdomen and transferred to the left chest wall first as this was the radiated side.� Microvascular anastomosis was then performed to the internal mammary vessels.� This was done using a 2.5 millimeter early childhood worker
for the venous anastomosis.� The arterial anastomosis was performed using 8-0 nylon suture in the normal standard fashion.
After the microvascular anastomosis was performed there was excellent perfusion of the flap.� This was temporarily inset and attention was turned to the contralateral breast.
The left hemiabdomen was then transferred to the right chest wall.� The identical procedure was then performed from a microvascular perspective.� This side was with a 3.0 mm early childhood worker for the venous anastomosis and 8-0 nylon suture for the arterial
anastomosis. This flap similarly had excellent perfusion afterwards.
While I was performing a microvascular anastomosis on the chest wall, my co-surgeon, Dr. Whatley, was reconstructing the abdominal wall. The abdominal wall was reconstructed using a piece of phasix mesh in an underlay fashion.� The fascia was
primarily closed bilaterally. The abdominal wall was then closed in a layered fashion.� This was done after performing a tap block using marcaine divided evenly amongst the hemiabdomens.� Two 15 Iranian champ drains were placed in the abdomen.� These
were secured using 2-0 Prolene sutures.� The Nancy's fascia was then reapproximated using 2-0 Vicryl suture.� The skin was then closed in a layered fashion using insorb dermal iker and a running Monocryl suture.
Bilateral pec and intercostal blocks were performed with marcaine and a 15 Iranian champ drain was placed in each breast pocket.� These were also secured using 2-0 Prolene sutures.�
The breast flaps were then de-epithelialized and inset.�The breast skin was then further revised using 42mm cookie cutters to create a new window for the skin paddle bilaterally. This resulted in a 4x4cm local tissue rearrangement on each side. The
incisions were then closed in layered fashion using 3-0 and 4-0 Monocryl suture.� All incisions were dressed with Dermabond glue.� Hand-held Doppler signals were found in the reconstructed breasts and these were marked with a 5-0 Prolene suture. A
MELVIN incisional wound VAC was applied to the abdominal incision.
The patient tolerated the procedure very well.� All counts were correct at the completion of the case.� The patient was then extubated uneventfully and transferred to the ICU in stable condition.
Dr. Anisha Whatley was my co-surgeon for this case.� His status as a co-surgeon was critical and allowing us to function as two separate teams.� This allowed us to operate simultaneously on both the breasts and the abdomen.� This was essential for
the appropriate safety and efficiency of this procedure.
--- NOTE | 2025-05-24 17:08 | W.IMMPOSTOP ---
Surgical Immed Post Op Note
-
Primary Surgeon: CYDNEY Whatley Md
Assisting Surgeon: CHERYLE Waller
Pre-op Diagnosis: h/o breast CA, s/p bilateral mastectomy
Post-op Diagnosis: Same
Procedure Performed: Bilateral KIRK flap breast reconstruction
Anesthesia Type: GA
Specimen / Cultures: Breast skin b/l, right internal mammary lymph node
Estimated Blood Loss: 150cc
Complications: None
Operative Findings: As expected
--- NOTE | 2025-05-24 17:10 | OR.RPT ---
Operative Report
Operative Report
Date of Service: 05/24/25
Surgeon: Owen Whatley MD
Co-Surgeon: Az Hernadez MD
Preoperative diagnosis:
1. Personal history of breast cancer
2. 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
3. Prior left breast radiation
Postoperative diagnosis: Same
Procedure:
1. Bilateral removal of tissue expanders without replacement
2. Bilateral capsulotomies and partial capsulectomies
3. Bilateral delayed KIRK flap breast reconstruction
4. Bilateral local tissue rearrangements of the breasts measuring 4x4cm on each side
5. Right internal mammary lymph node biopsy
6. Application of MELVIN disposable negative pressure incisional wound VAC.
Anesthesia: General
EBL: 150 cc
Specimens:
1. Right internal mammary lymph node
2. Right mastectomy skin and soft tissue
3. Left mastectomy skin and soft tissue
Drains: 4 15 Czech Champ drains
Complications: None
Indications: This is a 40-year-old female who has a history of breast cancer and bilateral mastectomies with cross tie tram loader based breast reconstruction. She has a history of left breast radiation and had decided to move forward with autologous
reconstruction. Given the bilateral procedure, complex nature, and multiple operatice sites, I referred her to my cosurgeon Dr. Az Hernadez. We discussed the various options available to her. She was interested in pursuing autologous reconstruction
with tissue from her abdomen and she had acceptable donor site. Risks of the procedure were discussed including flap failure, return to OR for arterial or venous thrombosis, wound healing issues, donor site morbidity to the abdomen and VTE.� We
reviewed the nature of the procedure and the risk benefits and alternatives at length.� All her questions were answered.� Consent was signed prior to surgery.
Operative findings:
The patient was brought to the operating room and placed supine on the operating room table. General anesthesia was induced with endotracheal tube.� A Tim catheter was placed.� Patient was prepped and draped in the standard fashion using
chlorhexidine prep.� A timeout was performed.
Dr. Hernadez and I started the dissection of the flaps in the abdomen together until we were able to confirm the flap dimensions and start the copy holder dissection. Once I starting performing the copy holder dissection on the right hemiabdomen,
Maricarmen went up to the chest to perform the internal mammary vessel dissection.� On both sides, the cross tie tram loader was removed and extensive capsulotomies were performed to radially expand the pocket. The third rib was resected bilaterally. The internal
mammary arteries and veins were identified and carefully circumferentially dissected. Internal mammary lymph nodes were encountered on the right and these were sent off for pathologic evaluation.
As Dr. Hernadez was working on the mammary vessels, I was working on the abdomen. This involved dissection of the abdominal wall and identification of perforating vessels into the abdominal flaps bilaterally.� On the patient's right side a 4 copy holder
KIRK flap was dissected.� This involved minimal muscle to minimize the morbidity to the abdominal wall.� The flap was dissected down to the source vessels where the inferior epigastrics were coming off of the external iliac. The abdominal vessel
dissection was particularly challenging due to the multiple prior C-sections the patient had. Her mammary vessel dissection was also difficult due to her prior radiation. Dr. Hernadez did the contralateral abdominal dissection while I was doing the
microsurgery on the left chest. On the contralateral side another 4 copy holder KIRK flap was also dissected.� This similarly involved a tedious dissection where the inferior epigastrics were traced down to their source vessel in a muscle sparing
approach.
The right flap was harvested from the abdomen and transferred to the left chest wall first as this was the radiated side.� Microvascular anastomosis was then performed to the internal mammary vessels.� This was done using a 2.5 millimeter correspondence review clerk
for the venous anastomosis.� The arterial anastomosis was performed using 8-0 nylon suture in the normal standard fashion.
After the microvascular anastomosis was performed there was excellent perfusion of the flap.� This was temporarily inset and attention was turned to the contralateral breast.
The left hemiabdomen was then transferred to the right chest wall.� The identical procedure was then performed from a microvascular perspective.� This side was with a 3.0 mm correspondence review clerk for the venous anastomosis and 8-0 nylon suture for the arterial
anastomosis. This flap similarly had excellent perfusion afterwards.
While Dr. Hernadez was performing a microvascular anastomosis on the chest wall, I was reconstructing the abdominal wall. The abdominal wall was reconstructed using a piece of phasix mesh in an underlay fashion.� The fascia was primarily closed
bilaterally. The abdominal wall was then closed in a layered fashion.� This was done after performing a tap block using marcaine divided evenly amongst the hemiabdomens.� Two 15 Czech champ drains were placed in the abdomen.� These were secured
using 2-0 Prolene sutures.� The Nancy's fascia was then reapproximated using 2-0 Vicryl suture.� The skin was then closed in a layered fashion using insorb dermal iker and a running Monocryl suture.
Bilateral pec and intercostal blocks were performed with marcaine and a 15 Czech champ drain was placed in each breast pocket.� These were also secured using 2-0 Prolene sutures.�
The breast flaps were then de-epithelialized and inset.�The breast skin was then further revised using 42mm cookie cutters to create a new window for the skin paddle bilaterally. This resulted in a 4x4cm local tissue rearrangement on each side. The
incisions were then closed in layered fashion using 3-0 and 4-0 Monocryl suture.� All incisions were dressed with Dermabond glue.� Hand-held Doppler signals were found in the reconstructed breasts and these were marked with a 5-0 Prolene suture. A
MELVIN incisional wound VAC was applied to the abdominal incision.
The patient tolerated the procedure very well.� All counts were correct at the completion of the case.� The patient was then extubated uneventfully and transferred to the ICU in stable condition.
Dr. Az Hernadez was my co-surgeon for this case.� His status as a co-surgeon was critical and allowing us to function as two separate teams.� This allowed us to operate simultaneously on both the breasts and the abdomen.� This was essential for the
appropriate safety and efficiency of this procedure.
[2025-05-24] MEDS: LR 1000 IV ×2 (17:30→23:55)
--- NOTE | 2025-05-24 17:40 | PTCARENOTE ---
Pt arrived to ICU approx 1710 from OR with OR nurse and nurse aircraft quality control inspector, s/p breast free flap/ KIRK surgery. Pt drowsy, but oriented x3 , BENAVIDES bilat. +PERRL. HR SR, BP 85/61. IV LR at 125 ml/hr hungvia R upper central line. +pedal pulses. R and L
breast flap + doppler pulses, sutures and breast drsgs intact bilat. Abd drsg intact with MELVIN drain, tested green light present. Pt with 4 bulb drains, R and L breast and R and L abd sites, draining serous sang drainage, 20-50 ml/hr see I+Os. Pt
on room air, o2 sat=97%, lobed diminished, but clear throughout. +BSs, drinking clear liqs, no nausea. Tim cath, temp sensing, draining mod amt yellow urine. CHG, mouth,and per care given. Pt in beach chair position, HOB at 30 degrees, pillows
under arms and lower exts. Daphne singh on at med, temp presently 99.[address] Whatley in to see patient at 1730, was updated and assessed pt. Dr Whatley is OK with pt's BP readings systolically in the 80s, not to be treated unless HR becomes
elevated/ ST. Pt comfortable, call scott at side.
[2025-05-24] MEDS: TYLENOL 1000 MG PO ×2 (18:37→22:39)
--- NOTE | 2025-05-24 19:49 | PTCARENOTE ---
on assessment pt drowsy AAOx3, denies chest pain and SOB at this time, core temp 99.7, Q1H checks per orders, SR on the monitor, SCDs, 98% on 2L, clear liquid diet, acosta to be removed POD#1, good u/o at this time, MASHA x4, ABD C/D/I with Estrellita CHARLESr
hugger on per orders, LR at 125ml/hr, call scott in reach
[2025-05-24] MEDS: VALIUM 5 MG PO (21:39)
[2025-05-24] MEDS: ANCEF 10 IV (23:54)
[2025-05-24] MEDS: NEURONTIN 300 MG PO (23:54)
[2025-05-25] VITALS (34 sets, daily range): BP systolic 85–109; BP diastolic 50–91; BMI 29.0
--- NOTE | 2025-05-25 | PTCARENOTE ---
pt denies pain and SOB at this time, ABD dressing C/D/I with MELVIN, MASHA x4 with small amount of output, call scott in reach
[2025-05-25 03:45] LABS: Hematocrit 28.4 % (37.0-47.0); Hemoglobin 9.9 g/dL (12.0-16.0); Mean Corp Hgb Conc. 34.9 g/dL (33.0-37.0); Mean Corpuscular Volume 101.4 fL (81.0-99.0); Nucleated Red Blood Cells % 0 %; Platelet Count 200 10^3/uL (130-400); Red Cell Dist. Width 11.2 % (11.5-14.5)
[2025-05-25 03:58] LABS: INR 1.02; PT 13.9 Sec (11.4-14.6)
[2025-05-25 04:09] LABS: Blood Urea Nitrogen 9 mg/dl (7-17); Calcium 8.2 mg/dl (8.4-10.2); Carbon Dioxide 27 mmol/L (22-30); Chloride 108 mmol/L (98-107); Estimated Creatinine Clearance 110 ml/min; Glucose 134 mg/dl (70-99); Potassium 3.9 mmol/L (3.5-5.1); Sodium 139 mmol/L (135-145); eGFR > 60.00
--- NOTE | 2025-05-25 04:23 | PTCARENOTE ---
no changes from prior assessment, call scott in reach
--- NOTE | 2025-05-25 06:31 | PTCARENOTE ---
scant amount of drainage noted from B/L breasts, dressing changed, pt denies pain and SOB at this time, call scott in reach
--- NOTE | 2025-05-25 07:18 | CON.INTV ---
Consultation
Consultation Request
Date/Time Consultation Requested: 05/25
Date/Time Consultation Performed: 05/25
Reason for Consultation: Critical care
Medical History
-
History of Present Illness:
History obtained from patient and reviewing the chart. Patient is a pleasant 40-year-old female diagnosed with stage II breast cancer in 2023 status post chemoradiation and bilateral mastectomy. She is presently status post bilateral KIRK flap
breast re construction. 150 cc blood loss, no complications. Presently she is feeling well. She has some mild discomfort in the chest but otherwise denies shortness of breath, nausea, abdominal pain. She is conversant. Preoperatively she denies
any fevers, diarrhea. We are asked to help from critical care standpoint
.
PMH: Stage II triple positive breast cancer diagnosed 2023 status post chemo, bilateral skin sparing mastectomy and reconstruction with tissue expanders followed by radiation. History of kidney stones
Past Medical History
Past Medical History: None (See above)
Past Surgical History: None (See above)
Social History
Tobacco: Non-smoker
Alcohol: Occasional
Drug: None
Personal:
Living: With Family
Family History
Family History: Other (Mother with history of breast cancer)
Allergies / Home Medications
Allergies
Allergy/AdvReac Type Severity Reaction Status Date / Time
No Known Allergies Allergy Verified 05/24/25 06:55
Home Medications
�Medication �Instructions �Recorded �Confirmed �Last Taken �Type
abemaciclib 100 mg tablet 100 mg PO BID Cancer 05/17/25 05/24/25 05/09/25 History
(Verzenio)
cholecalciferol (vitamin D3) 50 50 mcg PO DAILY Supplement 05/17/25 05/24/25 05/09/25 History
mcg (2,000 unit) tablet (Vitamin
D3)
letrozole 2.5 mg tablet 2.5 mg PO DAILY Cancer 05/17/25 05/24/25 05/09/25 History
multivitamin 1 tab PO DAILY Supplement 05/17/25 05/24/25 05/09/25 History
Review of Systems
-
All other systems: Negative unless noted
Vitals / Labs / Diagnostic Testing
Vital Signs
Temp Pulse Resp BP Pulse Ox
99.4 F 81 14 95/61 100
05/25/25 03:00 05/25/25 06:30 05/25/25 06:30 05/25/25 06:30 05/25/25 06:00
Lab Data
05/25/25 03:19
05/25/25 03:19
Laboratory Results
05/25/25
03:19
PT 13.9
INR 1.02
Diagnostic Testing:
Physical Exam
-
HEENT: Normocephalic, Anicteric, Moist Mucous Membranes and Other (Right anterior chest port)
Cardiovascular: S1/S2, Regular Rhythm, Murmur (n), Rub (n) and Peripheral Edema (tr)
Respiratory: Wheeze (n), Rales (n), Rhonchi (n) and Non-Labored Respirations
GI: Soft and Non Distended
Neurology: Awake, Alert and No Motor Deficits (Moves all extremities)
Skin: Good Color and Other (No rash)
General: Comfortable
Assessment
-
40-year-old female with history of stage II triple positive breast cancer diagnosed 2023, status post chemotherapy followed by bilateral skin sparing mastectomy with reconstruction with tissue expanders. She then received radiation therapy. She is
now status post KIRK Flap breast reconstruction 05/24/2025
S/p KIRK Flap breast reconstruction, 05/24/25
History of stage II, triple positive Left breast cancer 2023
Completed chemotherapy
Bilateral skin sparing mastectomy with reconstruction with tissue expanders
Followed by radiation
Conditions present prior to admission
History of nephrolithiasis
History of 2023
Family history of breast cancer
Plan/recommendations
At this time, patient is stable. Marginal blood pressure noted, currently receiving IV fluids. Urine output adequate
Patient with mild incisional discomfort but otherwise without any complaints
Blood work stable
Moving forward
Continue with IV fluids per surgery
Incentive spirometry, abdominal binder
Pain medication, bowel regimen
DVT prophylaxis: Mechanical and pharmacological
Tim catheter to be DC'd
Continue per surgery protocol
Reviewed with critical care nursing, pharmacy, respiratory care
Will follow
--- NOTE | 2025-05-25 07:59 | W.PN.ANS.POP ---
Anesthesia Post Operative
- Anesthesia Post Op Note
Vital Signs Stable-See Nursing Note: Yes
Airway Patent: Yes
Adequate Pain Control: Yes
Change in Mental Status: No
Current Postoperative Nausea & Vomiting: No
Anesthesia Complications: No
General Anesthetic Recall: No
Unplanned Admission: No
Post Op Hydration Adequate: Yes
[2025-05-25] MEDS: COLACE 100 MG PO ×3 (08:35→21:08)
[2025-05-25] MEDS: SENOKOT 8.6 MG PO ×2 (08:35→21:08)
[2025-05-25] MEDS: TYLENOL 1000 MG PO ×4 (08:35→22:00)
[2025-05-25] MEDS: NEURONTIN 300 MG PO ×2 (08:35→15:18)
[2025-05-25] MEDS: ANCEF 10 IV ×2 (08:48→16:06)
[2025-05-25] MEDS: LR 1000 IV ×2 (08:49→17:17)
--- NOTE | 2025-05-25 09:00 | W.PN.PLAS ---
Today's Communication
-
Tim out
Reg diet
Pain control
OOB to chair
Progress Note
Subjective Data
Doing well
mild abdominal tightness
No SOB
Subjective: Tim in Place
Objective Data
Vital Signs
Temp Pulse Resp BP Pulse Ox
98.3 F 102 21 92/61 98
05/25/25 11:20 05/25/25 10:45 05/25/25 10:45 05/25/25 10:00 05/25/25 10:30
Intake and Output
05/24/25 05/25/25 05/26/25
06:59 06:59 06:59
Intake Total 1725 / 1850 865 / 865
Output Total 3191 / 3361 591 / 591
Balance -1466 / -1511 274 / 274
Intake:
Oral fluids 100 / 100
IV fluids (Total) 1625 / 1750 625 / 625
Lr 1,000 ml @ 125 mls/hr IV . 1625 / 1750 625 / 625
Q8H JOCELYNN Rx#:[id number]
IV piggybacks 240 / 240
Output:
Drain Output (Total) 191 / 191 31 / 31
Left Abdomen B 110 / 110 10 / 10
Left Breast A 28 / 28 8 / 8
Right Abdomen D 30 / 30 8 / 8
Right Breast C 23 / 23 5 / 5
Urine, Tim 3000 / 3170 560 / 560
Lab Results
05/25/25 03:19
05/25/25 03:19
PEx:
NAD
No increased WOB
bilateral breasts with flaps showing evidence of good perfusion
Doppler signals intact bilaterally
No e/o venous congestion
Dressings intact
Drains serosanguinous with appropriate output
Assessment / Plan
s/p KIRK flap breast reconstruction
POD 1 protocol
lovenox/SCDs
progressive ambulation
po meds/ reg diet
[2025-05-25] MEDS: ULTRAM 100 MG PO ×2 (10:07→15:18)
[2025-05-25] MEDS: VALIUM 5 MG PO ×2 (10:08→18:16)
--- NOTE | 2025-05-25 10:15 | PTCARENOTE ---
OOB to the chair maintaining beach chair position. She tolerated it well and denied any pain or discomfort. Premedicated with Tramadol & Valium prior to transfer. Abdominal binder placed and rolled down the top portion to avoid her breast incisions.
MASHA drains secured to abdominal binder. She did not take very deep breaths when sitting up. Breath sounds dim throughout. She stated she was afraid it was going to make her cough. She was encouraged to cough and deep breath to prevent pneumonia, and
that coughing is beneficial for her recovery. She was provided strategies such as splinting her abdomen either with a bath blanket or pillow when coughing and deep breathing. Her mother is present at the bedside and very supportive. Safe
environment maintained. She was informed that we will still perform hourly 'paddle checks' and empty her drains every 4 hours.
--- NOTE | 2025-05-25 10:24 | CM ---
Met with patient and her mother at the bedside
Pharmacy verified: [facility], [place]
Lives w/ mother, sister and 3 yr old son; multilevel home; 3 steps to enter, 12-13 steps between floors; railings present; 2nd floor bath has stall shower
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
Mother will transport home
NO history of SNF; previous home health services w/ [facility]; agreeable to home health/[facility] order; referral sent/accepted by [facility]
Plan: Discharge to home when medically stable with home health/[facility] services
--- NOTE | 2025-05-25 10:35 | VNURNOTE ---
Home Health Liaison met with patient and mom at bedside to discuss [facility] nurse/therapy, visits, schedule and homebound status. Patient is agreeable and understands that visits at home will be 2-3 x per week to assess and teach medical management.
she is familiar with [facility], had our services last year. She and mom are aware & agreeable of pet policy, they have dogs and cats at home. Patient is aware that [facility] will contact them for start of care the day after discharge from (per
order). Provided contact number for [facility].
[facility] referral completed in [facility] Port.
[2025-05-25 11:32] LABS: Magnesium 2.1 mg/dl (1.6-2.3)
--- NOTE | 2025-05-25 13:52 | PTCARENOTE ---
She tolerated her clear liquid and her full liquid tray. Will advance diet to regular diet. Her mother was instructed on how to strip the drains and how to drain the drainage bulbs and how to apply bulb suction. She verbalized her understanding.
They are aware that a visiting nurse will be out to the house the day after discharge and will call for a time prior to arrival. She was encouraged to use the incentive spirometer for the prevention of pneumonia. Abdominal binder in place.
--- NOTE | 2025-05-25 14:37 | PTCARENOTE ---
1 assist to the BR. She reports pain is 'ok'. She gave it a 2-3 out of 10. She demonstrated the use of the IS to 750ml's. I informed her that because she has the abdominal binder on she is more restricted in expanding her rib cage & also to take
advantage of her upright position to fully expand her ribcage. Safe environment maintained.
[2025-05-25] MEDS: LOVENOX 40 MG SC (18:17)
--- NOTE | 2025-05-25 20:05 | PTCARENOTE ---
Pt received at 19:00. Hand off paddle check completed- good paddle signals. Ox3, pleasant, denies pain. SR-Sinus tach, HR 90s-110s. RA, pulse ox 96% and above. Breath sounds clear/diminished t/o. Bowel sounds active, bowel regimen started. Voids in
bathroom, no urine output noted at this time. MELVIN dressing to lower abdomen intact, scant amount of drainage noted. JPs with serosanguinous output. Continue with q1h paddle checks. Safe enviornment maintained, call scott within reach.
[2025-05-26] VITALS (27 sets, daily range): BP systolic 85–117; BP diastolic 61–90; BMI 29.4
[2025-05-26] MEDS: NEURONTIN 300 MG PO ×4 (00:07→23:50)
[2025-05-26 04:56] LABS: Hematocrit 24.5 % (37.0-47.0); Hemoglobin 8.6 g/dL (12.0-16.0)
[2025-05-26 05:51] LABS: Blood Urea Nitrogen 9 mg/dl (7-17); Calcium 8.1 mg/dl (8.4-10.2); Carbon Dioxide 30 mmol/L (22-30); Chloride 108 mmol/L (98-107); Estimated Creatinine Clearance > 125 ml/min; Glucose 104 mg/dl (70-99); Potassium 3.7 mmol/L (3.5-5.1); Sodium 138 mmol/L (135-145); eGFR > 60.00
--- NOTE | 2025-05-26 07:16 | W.PN.INTV ---
Addendum entered and electronically signed by Eliceo Caballero MD 05/26/25 13:58:
Hypotension is likely secondary to postoperative state, anesthesia 'other'
Original Note:
Today's Communication / Plan
Recommendations
Out of bed to chair, ambulate
IV fluids discontinued
Bowel regimen
Assessment
-
40-year-old female with history of stage II triple positive breast cancer diagnosed 2023, status post chemotherapy followed by bilateral skin sparing mastectomy with reconstruction with tissue expanders. She then received radiation therapy. She is
now status post KIRK Flap breast reconstruction 05/24/2025
S/p KIRK Flap breast reconstruction, 05/24/25
History of stage II, triple positive Left breast cancer 2023
Completed chemotherapy
Bilateral skin sparing mastectomy with reconstruction with tissue expanders
Followed by radiation
Conditions present prior to admission
History of nephrolithiasis
History of 2023
Family history of breast cancer
Plan/recommendations
At this time, patient is stable. Marginal blood pressure noted, without symptoms
IV fluids discontinued
P denies significant pain for me
Blood work stable
Moving forward
Incentive spirometry, abdominal binder
Pain medication, bowel regimen out of bed to chair, ambulate
Tim catheter discontinued
DVT prophylaxis: Mechanical and pharmacological
Continue per surgery protocol
Reviewed with critical care nursing, pharmacy, respiratory care
Hope for disposition in the next 24 hours
Subjective Dataa
Subjective Data
Date of Service:
Date of Service: May 26, 2025
Subjective:
Patient feels well. No complaints. Denies chest pain, shortness of breath, lightheadedness. Passing gas but has yet to move bowels. Family/friends at bedside
Objective Data
Data Reviewed
Vital Signs / I&O / Oxygen:
Vital Signs
Temp Pulse Resp BP Pulse Ox
98.5 F 98 20 93/70 90
08/22/25 04:45 05/26/25 06:00 05/26/25 06:00 05/26/25 06:00 05/26/25 02:00
Intake and Output
05/25/25 05/26/25 05/27/25
06:59 06:59 06:59
Intake Total 1725 / 1850 2975 / 2975
Output Total 3191 / 3361 721 / 721
Balance -1466 / -1511 2254 / 2254
SaO2 90
Nasal Cannula flow liters per 2
minute
Physical Exam
General: Comfortable
HEENT: Normocephalic and Anicteric
Cardiovascular: S1-S2, Regular Rhythm, Murmur (n), Rub (n) and Peripheral Edema (n)
Respiratory: Wheeze (n), Crackles (n), Rhonchi (n) and Non-Labored Respirations
GI: Soft, Non Distended and Non Tender
Neurology: Awake, Alert and No Motor Deficits
Skin: Cyanosis (n) and Rash (n)
Labs/Micro/Reports
Lab Data
05/26/25 04:26
05/26/25 04:26
[2025-05-26] MEDS: VALIUM 5 MG PO ×2 (07:49→18:29)
[2025-05-26] MEDS: COLACE 100 MG PO ×3 (07:49→21:55)
[2025-05-26] MEDS: TYLENOL 1000 MG PO ×4 (07:49→21:54)
[2025-05-26] MEDS: SENOKOT 8.6 MG PO ×2 (07:50→21:55)
--- NOTE | 2025-05-26 08:45 | PTCARENOTE ---
Rec'd pt at 0700 and paddle checks completed with offgoing RN. Rec'd pt awake alert and oriented resting in bed. Overall states she feels ok. Did admit to some soreness- mostly lower abd incision and generalized achiness in her back. Valium 5 mg po
given at 0750 along with scheduled Tylenol and Neurontin for discomfort and in anticipation of pt getting oob. Speech is clear. Denies dizziness or headache. BENAVIDES. Skin is pale pink wm and dry. Bilateral breast paddles are pink and warm with refill
<2 seconds. Good signals via doppler. Bilateral breast incisions are approximated with sutures intact- no drainage. Open to air- ABD lying over to prevent any rubbing from Abd binder which is folded over. Lower abd incision with dsd and tegaderm
over which is D+I. One small dot of old sanginous drainage on L side of dressing. Lower abd MELVIN drain present and fuctioning. Abd binder as noted in place. Pt with 4 MASHA drains -Bilateral lateral breast and Bilateral abd as documented. Dressings
over are D+I. All draining serosang drainage via bulb suction. All stripped and emptied per MD orders. Respirs are shallow but non-labored. Denies shortness of breath. BS are clear. IS encouraged- getting about 800-1000 mls. RA sats are 96%. Monitor
SR 80-90's at rest, does tend to be ST in the 108-120 range with activity. Vs as documented. + pulses. Tr pedal edema. KH SCD's in place. Abdomen is soft with hypoactive BS. Denies nausea. Assisted oob to the bathroom and voided. Did mouth and
partial am care standing at the sink then assisted into the chair Gait steady and maintained hunched position while walking and beach chair position in the chair. R chest SQ port capped-site wnl. Currently resting in the chair. Plan of care reviewed
with pt and call scott in reach. Dr. Whatley in to see pt and updated. Ready to order breakfast.
--- NOTE | 2025-05-26 09:00 | W.PN.PLAS ---
Progress Note
Subjective Data
Doing well
Denies SOB
Subjective: Tim in Place
Objective Data
Vital Signs
Temp Pulse Resp BP Pulse Ox
98.4 F 94 15 104/78 96
05/27/25 03:04 05/27/25 07:00 05/27/25 07:00 05/27/25 07:00 05/26/25 20:00
Intake and Output
05/26/25 05/27/25 05/28/25
06:59 06:59 06:59
Intake Total 2975 / 2975 1100 / 1100
Output Total 721 / 721 588 / 588
Balance 2254 / 2254 512 / 512
Intake:
Oral fluids 360 / 360 1100 / 1100
IV fluids (Total) 2375 / 2375
Lr 1,000 ml @ 125 mls/hr IV . 2375 / 2375
Q8H JOCELYNN Rx#:[id number]
IV piggybacks 240 / 240
Output:
Drain Output (Total) 161 / 161 108 / 108
Left Abdomen B 70 / 70 55 / 55
Left Breast A 28 / 28
Right Abdomen D 38 / 38 /
Right Breast C 11
Urine, Tim 560 / 560
Urine, Voided 480 / 480
Other:
Number of approximated MODERATE 1 1
amounts of urine
Number of approximated LARGE 1 1
amounts of urine
PEx:
NAD
No increased WOB
bilateral breasts with flaps showing evidence of good perfusion
Doppler signals intact bilaterally
No e/o venous congestion
Dressings intact
Drains serosanguinous with appropriate output
Lab Results
05/27/25 03:59
05/27/25 03:59
Assessment / Plan
s/p KIRK flap breast reconstruction
Expected post surgical anemia
POD 2 protocol
lovenox/SCDs
progressive ambulation
po meds/ reg diet
--- NOTE | 2025-05-26 10:14 | PTCARENOTE ---
Eating breakfast and visiting with family. Worked with PT and ambulated in the hallway. HR does tend to go up to the 120-130's with activity- currently at rest is 114-120. Denies discomfort.
--- NOTE | 2025-05-26 10:24 | PN.CDI ---
CDI
- -
CDI:
Physician Documentation Request
Admit Date: 05/24/25 05:54
Dear Doctor,
Please review the following and provide your response in the progress notes.
Clinical Indicators:
Pt admitted for KIRK Flap breast reconstruction, 05/24/25 /History of stage II, triple positive Left breast cancer 2023
Sales Service Supervisor consult, 'At this time, patient is stable. Marginal blood pressure noted, currently receiving IV fluids. ...'
ESBL 150 ml
Trended Hemoglobin/ hematocrits below
05/10/25 05/25/25 05/26/25
08:04 03:19 04:26
Hgb 11.2 L 9.9 L 8.6 L
Hct 31.8 L 28.4 L 24.5 L
Please provide a diagnosis for the above laboratory findings:
Acute blood loss anemia
Abnormal lab value
Other ( please specify)
Use of terms such as suspected, likely, concern for, or probable (associated with a specific diagnosis that is being evaluated, monitored, or treated as if it exists) are acceptable and can be coded in the inpatient setting, when documented at the
time of discharge.
Thank you,
Greer Franz RN
CDI Specialist
[place] [facility]
Please use your independent medical judgment in providing your response.
--- NOTE | 2025-05-26 12:30 | PTCARENOTE ---
Remains resting oob in the chair. No complaints offerered. Denies pain. Breast paddles are unchanged- pink with good doppler signals. Lower abd dressing is unchanged. Ilan drains with serosang drainage. Stripped and emptied. VS as documented.
Ambulated to the bathroom to void. Gait steady. Call scott in reach.
--- NOTE | 2025-05-26 14:36 | CM ---
POD#2, acosta d/cd, OOB/Chair, enc ambulation, drains intact. Discharge POC: Home with [facility] RN for drain and wound care.
--- NOTE | 2025-05-26 15:00 | PTCARENOTE ---
Dozing in the chair. With dozing HR in the 90's SR. When awake HR 90-110 at rest and up to the 115-130's STach with activity. No other changes.
--- NOTE | 2025-05-26 16:30 | PTCARENOTE ---
Resting oob in the chair most of the afternoon. Ambulated 1 loop around the ICU without difficulty. No c/o dizziness and gait steady. Denies pain-states she feels good overall. VS as documented. O2 sats are 98%. Encouraged to keep using the IS
especially since she has the abd binder on.- getting about 700-800 mls. Breast paddles are pink and warm with good signals. Breast tissue is soft. Abd dressing is D+I. MELVIN drain functioning. MASHA drains stripped and emptied- all draining serosang
drainage. Voiding in the toilet-mod amt each time. Emerald care done by pt. Currently resting back in the chair. Call scott in reach.
[2025-05-26] MEDS: LOVENOX 40 MG SC (18:21)
--- NOTE | 2025-05-26 18:35 | PTCARENOTE ---
Assessment overall unchanged- has tolerated sitting oob in the chair all day and wanted to remain sitting up. Does admit to some increased soreness- mostly lower abd. Medicated with Valium 5 mg Po. Good appetite for dinner. Breast paddles
unchanged. Call scott in reach.
--- NOTE | 2025-05-26 20:39 | PTCARENOTE ---
Received pt sitting up in chair, AAOx3. Without complaints at this time. Pain well controlled per pt. Ambulated to bathroom with standby assist then back to bed. SR/ST on tele, HR 90-110s. Afebrile. SCDs maintained. On RA. Lungs CTA. Hypoactive
bowel sounds. Abd incision dsg c/d/i, MELVIN dsg present. Abd binder on for comfort. B/L breast flaps body temp, pink, good signals - Q4hr checks ongoing. MASHA drains x4 with serosang output - see I&O. R SQ port hep locked.
[2025-05-27] VITALS (12 sets, daily range): BP systolic 84–122; BP diastolic 60–88; PULSE 112–121; BMI 29.0
--- NOTE | 2025-05-27 04:20 | PTCARENOTE ---
Pt without complaints overnight, rested when undisturbed. Flaps unchanged. Minimal output from MASHA drains - stripped Q4, see I&O.
[2025-05-27 04:23] LABS: Hematocrit 24.7 % (37.0-47.0); Hemoglobin 8.8 g/dL (12.0-16.0); Mean Corp Hgb Conc. 35.6 g/dL (33.0-37.0); Mean Corpuscular Volume 99.6 fL (81.0-99.0); Platelet Count 175 10^3/uL (130-400); Red Cell Dist. Width 11.6 % (11.5-14.5)
[2025-05-27 04:49] LABS: Blood Urea Nitrogen 9 mg/dl (7-17); Calcium 8.8 mg/dl (8.4-10.2); Carbon Dioxide 28 mmol/L (22-30); Chloride 109 mmol/L (98-107); Estimated Creatinine Clearance > 125 ml/min; Glucose 109 mg/dl (70-99); Potassium 3.6 mmol/L (3.5-5.1); Sodium 139 mmol/L (135-145); eGFR > 60.00
--- NOTE | 2025-05-27 07:16 | W.PN.INTV ---
Addendum entered and electronically signed by Eliceo Caballero MD 06/01/25 06:16:
Marginal blood pressure secondary to postoperative state, and medication related
Patient also states she has chronically low blood pressure
Anemia secondary to dilutional effect, postoperative state
Original Note:
Today's Communication / Plan
Recommendations
Ambulate, out of bed
Bowel regimen
Disposition efforts noted
Assessment
-
40-year-old female with history of stage II triple positive breast cancer diagnosed 2023, status post chemotherapy followed by bilateral skin sparing mastectomy with reconstruction with tissue expanders. She then received radiation therapy. She is
now status post KIRK Flap breast reconstruction 05/24/2025
S/p KIRK Flap breast reconstruction, 05/24/25
History of stage II, triple positive Left breast cancer 2023
Completed chemotherapy
Bilateral skin sparing mastectomy with reconstruction with tissue expanders
Followed by radiation
Conditions present prior to admission
History of nephrolithiasis
History of 2023
Family history of breast cancer
Plan/recommendations
At this time, patient is stable. Marginal blood pressure noted, without symptoms
IV fluids discontinued
Passing gas, no bowel movement as of yet
Blood work stable
Moving forward
Incentive spirometry, abdominal binder
Pain medication, bowel regimen out of bed to chair, ambulate
Tim catheter discontinued
DVT prophylaxis: Mechanical and pharmacological
Disposition per surgery
Subjective Dataa
Subjective Data
Date of Service:
Date of Service: May 27, 2025
Subjective:
Patient without complaints. Denies shortness of breath, chest pain, nausea, significant abdominal pain. Sitting in chair, ambulating without difficulty
Objective Data
Data Reviewed
Vital Signs / I&O / Oxygen:
Vital Signs
Temp Pulse Resp BP Pulse Ox
98.4 F 94 15 104/78 96
05/27/25 03:04 05/27/25 07:00 05/27/25 07:00 05/27/25 07:00 05/26/25 20:00
Intake and Output
05/26/25 05/27/25 05/28/25
06:59 06:59 06:59
Intake Total 2975 / 2975 1100 / 1100
Output Total 721 / 721 588 / 588
Balance 2254 / 2254 512 / 512
SaO2 96
Nasal Cannula flow liters per 2
minute
Physical Exam
General: Comfortable
HEENT: Normocephalic and Anicteric
Cardiovascular: S1-S2, Regular Rhythm, Murmur (n), Rub (n) and Peripheral Edema (n)
Respiratory: Wheeze (n), Crackles (n), Rhonchi (n) and Non-Labored Respirations
GI: Soft, Non Distended and Non Tender
Neurology: Awake, Alert and No Motor Deficits
Skin: Cyanosis (n) and Rash (n)
Labs/Micro/Reports
Lab Data
05/27/25 03:59
05/27/25 03:59
[2025-05-27] MEDS: COLACE 100 MG PO (08:07)
[2025-05-27] MEDS: TYLENOL 1000 MG PO (08:08)
[2025-05-27] MEDS: SENOKOT 8.6 MG PO (08:08)
[2025-05-27] MEDS: NEURONTIN 300 MG PO (08:08)
--- NOTE | 2025-05-27 08:15 | W.PN.PLAS ---
Today's Communication
-
Discharge to home with VN
Progress Note
Subjective Data
Doing well
Denies SOB
Subjective: Tim in Place
Objective Data
Vital Signs
Temp Pulse Resp BP Pulse Ox
98.4 F 94 15 104/78 96
05/27/25 03:04 05/27/25 07:00 05/27/25 07:00 05/27/25 07:00 05/26/25 20:00
Intake and Output
05/26/25 05/27/25 05/28/25
06:59 06:59 06:59
Intake Total 2975 / 2975 1100 / 1100
Output Total 721 / 721 588 / 588
Balance 2254 / 2254 512 / 512
Intake:
Oral fluids 360 / 360 1100 / 1100
IV fluids (Total) 2375 / 2375
Lr 1,000 ml @ 125 mls/hr IV . 2375 / 2375
Q8H JOCELYNN Rx#:[id number]
IV piggybacks 240 / 240
Output:
Drain Output (Total) 161 / 161 108 / 108
Left Abdomen B 70 / 70 55 / 55
Left Breast A 28 / 28
Right Abdomen D 38 / 38 17 / 17
Right Breast C
Urine, Tim 560 / 560
Urine, Voided 480 / 480
Other:
Number of approximated MODERATE 1 1
amounts of urine
Number of approximated LARGE 1 1
amounts of urine
PEx:
NAD
No increased WOB
bilateral breasts with flaps showing evidence of good perfusion
Doppler signals intact bilaterally
No e/o venous congestion
Dressings intact
Drains serosanguinous with appropriate output
Lab Results
05/27/25 03:59
05/27/25 03:59
Assessment / Plan
s/p KIRK flap breast reconstruction
Expected post surgical anemia
POD 3 protocol
lovenox/SCDs
progressive ambulation
po meds/ reg diet
--- NOTE | 2025-05-27 08:16 | W.DCSUMMARY ---
Discharge Summary
Discharge Data
Date of Admission: 05/24/25
Date of Discharge: 05/27/25
-
Pending Results: No
Hospital Course
Admitted following KIRK flap breast reconstruction to ICU for every hour flap monitoring as per standard of care.
Routine postoperative course.
Progressive ambulation, tolerating regular diet and oral medications.
Home with VN and drains, close surgical follow up.
Discharge Plan
-
Patient Disposition: Home (Routine Discharge)
Discharge Diagnosis/Procedures: s/p KIRK flap breast reconstruction
Condition: Good
Diet: Regular
Activity: No strenuous activity
Additional Activity: No heavy lifting >10lbs
Bathing Restrictions: OK to Shower
Other Services: VN
Wound Care: Strip and record drain output twice daily. Abdominal binder as needed for comfort. ABD pads as needed for wounds.
Referrals:
Bruce Robert DO [Family Provider, [facility]]
Prescriptions:
New
tramadol 50 mg Tablet
50 mg PO Q6HPRN PRN (Reason: severe pain) 14 Days Qty: 20 0RF
acetaminophen [Tylenol Extra Strength] 500 mg Tablet
1,000 mg PO QID 30 Days Qty: 240 0RF
docusate sodium 100 mg Capsule
100 mg PO TID 14 Days Qty: 42 0RF
gabapentin 300 mg Capsule
300 mg PO Q8 90 Days Qty: 270 1RF
diazepam 5 mg Tablet
5 mg PO TIDPRN PRN (Reason: Muscle Spasms) 14 Days Qty: 42 0RF
enoxaparin 40 mg/0.4 mL Syringe
40 mg SC QPM 7 Days Qty: 2.8 0RF
Continued
multivitamin Tablet
1 tab PO DAILY
cholecalciferol (vitamin D3) [Vitamin D3] 50 mcg (2,000 unit) Tablet
50 mcg PO DAILY
Held
letrozole 2.5 mg Tablet
2.5 mg PO DAILY
Hold Instructions: Resume on 06/07/25.
Verzenio 100 mg Tablet
100 mg PO BID
Hold Instructions: Resume on 06/07/25.
Discharge Orders:
Discharge Patient (As Directed); Ordered 05/27/25
Ordered By: Fred Whatley
Discharge Date and Time
Print Language: BRAZILIAN
--- NOTE | 2025-05-27 09:53 | PTCARENOTE ---
Rec'd pt at 0700. Pt AAOx3, follows commands, BENAVIDES. Pt OOB to recliner chair with supervision, ambulates to bathroom to void. Monitor SR/ST. B/L breast paddles +doppler signals, skin warm/pink. Lower abdomen MELVIN dressing in place, functioning
appropriately. [address] Whatley in to see pt, discharge orders received. Instructions reviewed with pt. Pt discharged to home at 0950.
--- NOTE | 2025-05-29 09:24 | PN.CDI ---
CDI
- -
CDI:
Physician Documentation Request
Admit Date: 05/24/25 05:54
Dear Doctor,
Please review the following and provide your response in the progress notes.
Clinical Indicators:
Pt admitted for KIRK Flap breast reconstruction, 05/24/25 /History of stage II, triple positive Left breast cancer 2023
Education Professor consult, 'At this time, patient is stable. Marginal blood pressure noted, currently receiving IV fluids. ...'
ESBL 150 ml
Trended Hemoglobin/ hematocrits below
05/10/25 05/25/25 05/26/25
08:04 03:19 04:26
Hgb 11.2 L 9.9 L 8.6 L
Hct 31.8 L 28.4 L 24.5 L
Please provide a diagnosis for the above laboratory findings:
Acute blood loss anemia
Abnormal lab value
Other ( please specify)
Use of terms such as suspected, likely, concern for, or probable (associated with a specific diagnosis that is being evaluated, monitored, or treated as if it exists) are acceptable and can be coded in the inpatient setting, when documented at the
time of discharge.
Thank you,
Greer Frazn RN
CDI Specialist
[place] [facility]
Please use your independent medical judgment in providing your response.
== END 2025-05-27 09:53 | disposition home health service (06) | DRG 581 ==
LOC: ICU 05:54
PROVIDERS: Nurse Practitioner Family; Nurse Practitioner Primary Care; ADMITTING PHYSICIAN Surgery Plastic and Reconstructive Surgery; CONSULT PHYSICIAN Internal Medicine Critical Care Medicine; FAMILY PHYSICIAN Family Medicine
PROC: 0HPT0NZ Removal of Tissue Expander from Right Breast, Open Approach (ICD-10-PCS; 2025-05-24)
PROC: 07B80ZX Excision of Right Internal Mammary Lymphatic, Open Approach, Diagnostic (ICD-10-PCS; 2025-05-24)
PROC: 0HPU0NZ Removal of Tissue Expander from Left Breast, Open Approach (ICD-10-PCS; 2025-05-24)
PROC: 0HRV077 Replacement of Bilateral Breast using Deep Inferior Epigastric Artery Perforator Flap, Open Approach (ICD-10-PCS; 2025-05-24)
DX: Z42.1 Encounter for breast reconstruction following mastectomy (principal); I95.81 Postprocedural hypotension; D64.9 Anemia, unspecified; T50.995A Adverse effect of other drugs, medicaments and biological substances, initial encounter; Z79.811 Long term (current) use of aromatase inhibitors; Z79.899 Other long term (current) drug therapy; Z80.3 Family history of malignant neoplasm of breast; Z85.3 Personal history of malignant neoplasm of breast; Z90.13 Acquired absence of bilateral breasts and nipples; Z92.21 Personal history of antineoplastic chemotherapy; Z92.3 Personal history of irradiation
CPT/HCPCS: 36415; 80048; 80053; 83735; 84100; 85014; 85018; 85025; 85027; 85610; 88304; 88305; 88342; 93005; 97116; 97162; A4648; C1729; C1781

== ENCOUNTER 2025-09-05 06:09 | Day surgery (SDC) | payer OTHER, SELFPAY ==
[2025-08-23 11:05] LABS: Hematocrit 35.4 % (37.0-47.0); Hemoglobin 12.4 g/dL (12.0-16.0); Mean Corp Hgb Conc. 35.0 g/dL (33.0-37.0); Mean Corpuscular Volume 94.4 fL (81.0-99.0); Platelet Count 231 10^3/uL (130-400); Red Cell Dist. Width 12.9 % (11.5-14.5)
[2025-08-23 11:32] LABS: Prealbumin (Transthyretin) 22.1 mg/dl (17.6-36.0)
[2025-08-23 11:35] LABS: ALT (SGPT) 58 U/L (0-35); AST (SGOT) 37 U/L (14-36); Albumin 4.6 g/dl (3.5-5.0); Alkaline Phosphatase 117 U/L (38-126); Blood Urea Nitrogen 18 mg/dl (7-17); Calcium 9.7 mg/dl (8.4-10.2); Carbon Dioxide 29 mmol/L (22-30); Chloride 103 mmol/L (98-107); Glucose 89 mg/dl (70-99); Potassium 4.0 mmol/L (3.5-5.1); Sodium 137 mmol/L (135-145); Total Protein 8.1 g/dl (6.3-8.2); Vitamin D, 25-OH*** 32.3 ng/mL (30-80); eGFR > 60.00
[2025-08-23 12:17] VITALS: BMI 29.2
[2025-09-05 07:03] VITALS: BMI 29.2
[2025-09-05 07:04] VITALS: BP 101/69
[2025-09-05] MEDS: LOVENOX 40 MG SC (07:16)
[2025-09-05] MEDS: TYLENOL 1000 MG PO (07:16)
[2025-09-05] MEDS: NORMOSOL-R/PLASMALYTE-A 1000 IV (07:17)
[2025-09-05 08:08] VITALS: BP 102/64
--- NOTE | 2025-09-05 08:10 | W.IMMPOSTOP ---
Surgical Immed Post Op Note
-
Primary Surgeon: Kodi
Assisting Surgeon: None
Pre-op Diagnosis: Left breast carcinoma
Post-op Diagnosis: Same
Procedure Performed: Removal right portacath
Anesthesia Type: TIVA
Specimen / Cultures: None
Estimated Blood Loss: 2cc
Complications: None
Operative Findings: None
--- NOTE | 2025-09-05 08:11 | OR.RPT ---
Operative Report
Operative Report
Date of procedure: 09/05/2025
Surgeon: Kodi
Preoperative diagnosis: Left breast carcinoma
Postoperative diagnosis: Left breast carcinoma
Procedure: Removal of right Port-A-Cath
The patient is a 40-year-old female who presented with triple negative left breast carcinoma. She underwent neoadjuvant chemotherapy followed by surgery and reconstruction. She completed her adjuvant treatment and presents for right Port-A-Cath
removal.
On the day of the procedure the patient presented to the same-day surgical services unit. She verified site and procedure. She was prepped and DVT and antibiotic prophylaxis were provided. She was transferred to the operating room and in the
supine position intravenous sedation was delivered. The right chest was prepped and draped in the usual sterile fashion an appropriate timeout was performed by all staff members.
Tissues were anesthetized with 1% lidocaine plain. The previous insertion incision was entered sharply with the blade. Dissection was carried down to the port pocket using the cautery. The port easily extruded with the catheter intact. The
venous tract was suture-ligated with 3-0 Polysorb. Hemostasis was verified. Marcaine 0.5% plain was instilled in the wound which was closed using simple interrupted 3-0 Polysorb on subcutaneous tissue and skin was closed with a running
subcuticular 4 Monocryl. Surgical glue and a sterile compressive dressing were applied. All sponge needle and instrument counts were correct and the patient was transferred to recover in the Same Day Surgcal Services Unit in stable condition.
([id number])
[2025-09-05 08:15] VITALS: BP 103/69
[2025-09-05 08:30] VITALS: BP 92/68
== END 2025-09-05 08:48 | disposition home or self-care (01) ==
LOC: SDS 06:09
PROVIDERS: ATTENDING PHYSICIAN Surgery; FAMILY PHYSICIAN Family Medicine
DX: C50.912 Malignant neoplasm of unspecified site of left female breast (principal); Z92.21 Personal history of antineoplastic chemotherapy
CPT/HCPCS: 36590; 80053; 82306; 84134; 85027